=== PATIENT | female | born 1945 | race Two or more races ===

== ENCOUNTER 2020-01-20 06:20 | Day surgery (SDC) | payer OTHER ==
[2020-01-20] VITALS (9 sets, daily range): BP systolic 122–139; BP diastolic 59–73
[~2020-01-20] VITALS: Ht 149.9 cm; Wt 53.5 kg
[~2020-01-20 06:20] MED LIST: OMEPRAZOLE40 M1 ORAL
[2020-01-20] MEDS ORDERED: CREON DR 36,001 EACH PO (06:43)
[2020-01-20] MEDS ORDERED: SULFAMETHOXAZO1 EAC1 ORAL (06:43)
[2020-01-20] MEDS ORDERED: BISACODYL5 MG ORAL (06:43)
--- NOTE | 2020-01-20 06:56 | Short Stay Surgery H&P ---
History of Present Illness History of Present Illness Chief Complaint abdominal pains/GERDs, constipation, rectal bleeding. HPI Mariluz Ogden is a 74 year old female who was admitted on for Gerd,Abdominal Pain Patient History Allergies: Coded Allergies: No Known Allergies (Unverified , 01/20/20) PAST MEDICAL HISTORY: (1) Hyperlipidemia (2) Arthritis (3) History of carpal tunnel release Medication History Scheduled Bisacodyl* (Dulcolax*), 5 MG ORAL DAILY, (Reported) Lipase/Protease/Amylase (Creon Dr 36,000 Units Capsule), 1 EACH PO DAILY, (Reported) Omeprazole (Omeprazole), 40 MG ORAL DAILY, (Reported) Sulfamethoxazole/Trimethoprim Ss Tab* (Sulfamethoxazole-Tmp Ss Tablet*), 1 TAB ORAL TWICE A DAY, (Reported) Review of Systems Cardiovascular: Reports: no symptoms Skeletal: Reports: trauma Gastrointestinal: Reports: gastro esophageal reflux disease Genitourinary: Reports: no symptoms Neurologic: Reports: no symptoms Endocrine: Reports: no symptoms Hematologic: Reports: no symptoms Physical Exam Vital Signs Last Vital Signs Date Time Temp Pulse Resp B/P (MAP) Pulse Ox O2 Delivery O2 Flow Rate FiO2 01/20/20 06:44 97.0 57 16 138/65 99 Room Air Skin: normal HENT: normal Heart: normal Lungs: normal Abdomen: abnormal Extremities: normal Genitourinary: normal Plan Plan of Care Upper GI. endoscopy and biopsy. Preop Interventions None. Summary of Findings See the reports. Attestation Are the patient's medical conditions optimized for surgery? Attestation Response: yes Derick Bermudez MD Jan 20, 2020 06:56
--- NOTE | 2020-01-20 06:57 | Pre-Procedure Note/Attestation ---
Pre-Procedure Note/Attestation Complete Prior to Procedure Planned Procedure: left Procedure Narrative: Examination of the upper GI. tract with obtaining biopsy Indications for Procedure Pre-Operative Diagnosis: R/O Peptic ulcer/esophagitis. Attestation I attest that I discussed the nature of the procedure; its benefits; risks and complications; and alternatives (and the risks and benefits of such alternatives), prior to the procedure, with the patient (or the patient's legal surgical sales representative). I attest that, if there was a reasonable possibility of needing a blood transfusion, the patient (or the patient's legal surgical sales representative) was given the [place] [facility] [employer] [facility] standardized written summary, pursuant to the Ihsan Shannon Blood Safety Act ([place] Health and Safety Code # 1645, as amended). I attest that I re-evaluated the patient just prior to the surgery and that there has been no change in the patient's H&P, except as documented below: Derick Bermudez MD Jan 20, 2020 06:57
--- NOTE | 2020-01-20 06:58 | Discharge Instructions ---
Discharge Instructions Discharge Instructions Follow up with: Call for appointment in the office after 2 weeks. For Congestive Heart Failure Reminder Report to your physician any weight gain of 5 pounds or more in one week. Derick Bermudez MD Jan 20, 2020 06:58
[2020-01-20] MEDS ORDERED: Midazolam 2mg/2ml Inj ONE (07:59)
[2020-01-20] MEDS ORDERED: Lidocaine 1% MPF 10mg/ml 5ml ONE (08:00)
[2020-01-20] MEDS ORDERED: LR 1000ml ONE (08:00)
--- NOTE | 2020-01-20 08:13 | Anethesia Preoperative Eval ---
Anesthesia Pre-op PMH/ROS General Date of Evaluation: Jan 20, 2020 Time of Evaluation: 07:51 Anesthesiologist: Elizabeth ASA Score: ASA 3 Mallampati Score Class I : Soft palate, uvula, fauces, pillars visible Class II: Soft palate, uvula, fauces visible Class III: Soft palate, base of uvula visible Class IV: Only hard plate visible Mallampati Classification: Class II Surgeon: Aidan Diagnosis: Hiatal Hernia Surgical Procedure: EGD Anesthesia History: none Family History: no anesthesia problems Allergies: Coded Allergies: No Known Allergies (Unverified , 01/20/20) Medications: see eMAR Patient NPO?: Yes Past Medical History Cardiovascular: Reports: HTN Gastrointestinal/Genitourinary: Reports: GERD, other - Hiatal Hernia Musculoskeletal/Integumentary: Reports: OA Anesthesia Pre-op Phys. Exam Physician Exam Last Vital Signs Date Time Temp Pulse Resp B/P (MAP) Pulse Ox O2 Delivery O2 Flow Rate FiO2 01/20/20 06:44 97.0 57 16 138/65 99 Room Air Constitutional: NAD Neurologic: CN 2-12 intact Cardiovascular: RRR Respiratory: CTA Gastrointestinal: S/NT/ND Airway Exam Mallampati Score: Class II MO: full ROM: limited Teeth: missing, intact Anesthesia Pre-op A/P Risk Assessment & Plan Assessment: ASA 3 Plan: TIVA Status Change Before Surgery: David Clinton MD Jan 20, 2020 08:13
--- NOTE | 2020-01-20 08:14 | Immediate Post-Op Evaluation ---
Immediate Post-Op Evalulation Immediate Post-Op Evalulation Procedure: EGD Date of Evaluation: Jan 20, 2020 Time of Evaluation: 08:44 IV Fluids: 400 LR Blood Products: 0 Estimated Blood Loss: 1 Urinary Output: 0 Blood Pressure Systolic: 139 Blood Pressure Diastolic: 60 Pulse Rate: 60 Respiratory Rate: 17 O2 Sat by Pulse Oximetry: 100 Temperature (Fahrenheit): 97.2 Pain Score (1-10): 1 Nausea: No Vomiting: No Complications 0 Patient Status: awake, reacts, patent, none Hydration Status: adequate David Johnson MD Jan 20, 2020 08:14
[2020-01-20] MEDS ORDERED: HYDROcodone/Acetamin 5/325 tab ORAL PRN (08:15)
[2020-01-20] MEDS ORDERED: LR 1000ml 1,000 ML IVLG SCH (08:15)
[2020-01-20] MEDS ORDERED: LORazepam Inj 2mg/ml 1ml IV PRN (08:15)
[2020-01-20] MEDS ORDERED: HYDROcodone/Acetamin 7.5/325 tab ORAL PRN (08:15)
[2020-01-20] MEDS ORDERED: Meperidine 25mg/1ml Inj (FOR RIGORS ONLY) IV PRN (08:15)
[2020-01-20] MEDS ORDERED: Labetalol 5mg/ml 20ml vial IV PRN (08:15)
[2020-01-20] MEDS ORDERED: oxyCODONE HCL/Acetaminophen 5/325mg ORAL PRN (08:15)
[2020-01-20] MEDS ORDERED: Hydromorphone 0.5mg/0.5ml inj IVP PRN (08:15)
[2020-01-20] MEDS ORDERED: Ketorolac 30mg Inj IV PRN ×2 (08:15)
[2020-01-20] MEDS ORDERED: Metoclopramide 10mg/2ml Inj IVP PRN (08:15)
[2020-01-20] MEDS ORDERED: fentaNYL 100 mcg/2 mL IV PRN (08:15)
[2020-01-20] MEDS ORDERED: Midazolam 2mg/2ml Inj IVP PRN (08:15)
[2020-01-20] MEDS ORDERED: DiphenhydrAMINE 50mg/ml Inj IVP PRN (08:15)
[2020-01-20] MEDS ORDERED: Atropine Sulfate 0.4mg/ml inj IVP PRN (08:15)
--- NOTE | 2020-01-20 08:15 | 48 Hour Post Anesthesia Eval ---
Post Anesthesia Evaluation Procedure: EGD Date of Evaluation: Jan 20, 2020 Time of Evaluation: 10:54 Blood Pressure Systolic: 138 0: 62 Pulse Rate: 63 Respiratory Rate: 18 Temperature (Fahrenheit): 98 O2 Sat by Pulse Oximetry: 100 Airway: patent Nausea: No Vomiting: No Pain Intensity: 1 Hydration Status: adequate Cardiopulmonary Status: Stable Mental Status/LOC: patient returned to baseline Follow-up Care/Observations: 0 Post-Anesthesia Complications: 0 Follow-up care needed: ready to discharge David Johnson MD Jan 20, 2020 08:15
--- NOTE | 2020-01-20 08:15 | Endoscopy Procedure Note ---
Endoscopy Procedure Note General Indication for Procedure: Epigastric pain/GERDs Procedures Performed: EGD - Small Hiatal hernia and mild gastritis, biopsies obtained from prepyloric and gastric body areas. Specimen: yes Pt Tolerated Procedure Well: Yes Estimated Blood Loss: none Anesthesia Anesthesiologist: Dr. Johnson Anesthesia: moderate sedation Medications Medication Given: see anesthesia record Inserted Devices Implant(s) used?: No Quality Quality of Bowel Preparation: Excellent Was there any complications?: No GI Core Measures 50 yrs or older w/o bx or poly: Not Applicable 10yrs. F/U recommended: Not Applicable If not recommended, why?: Med reason:<3 yrs.: System Reason:<3 yrs.: Derick Bermudez MD Jan 20, 2020 08:15
--- NOTE | 2020-01-20 09:00 | Procedure Note ---
DATE OF PROCEDURE: 01/20/2020 SURGEON: Derick Bermudez MD. PROCEDURE: Esophagogastroduodenoscopy with biopsy. PREOPERATIVE DIAGNOSES: History of nonsteroidal anti-inflammatory agent taken, rule out peptic ulcer disease, gastritis, esophagitis, duodenal ulcer. POSTOPERATIVE DIAGNOSES: 1. Small hiatal hernia. 2. Mild gastritis particularly in the pre-pyloric area. Biopsy was taken from the pre-pyloric area and gastric body. MEDICATION USED: Per Dr. Johnson. INSTRUMENT: GIF Olympus upper GI video endoscope. DESCRIPTION OF PROCEDURE: The patient after arriving an endoscopy unit, was told about risks and benefits of the procedure which she accepted and signed informed consent. At this time, she was put on the left lateral decubitus position. After adequate IV sedation, the scope was gently passed through the cricopharyngeal area, was lodged in the upper esophagus and gradually advanced towards gastroesophageal junction. The entire length of esophagus looked normal. No evidence of any ulcerations, strictures, tumors, polyps, or exudative process etc. was noted. Upon reaching to GE junction, the ulcer looked normal but there was no evidence of Tucker's mucosa though there was seen a small hiatal hernia. At this time, the scope was advanced into the stomach and gastric cavity was distended with insufflation of air. Gradually, the areas of the fundus and the body and the antrum were examined. There was no any evidence of ulcers or polyps or tumor; however, there was mild inflammatory process mostly seen in the mid body and particularly in the peripyloric area. At this point, one biopsy from the gastric body and the other one from the pre-pyloric area was obtained and subsequently scope was passed through the pylorus. First and second portion of duodenum were found to be completely normal. The scope was then pulled out and a retroflexion maneuver was applied and the area of the gastroesophageal junction was examined in a closer fashion, which did not reveal any particular abnormalities. Finally, the scope was pulled out and the procedure was terminated. The patient tolerated the procedure well and left the endoscopy room in good condition. Derick Bermudez M.D. DR: Ryan JOB#: [id number] CC:
--- NOTE | 2020-01-20 09:59 | Pre-op HX & Phy Repo 2 SIG ---
DATE OF ADMISSION: 01/20/2020 HISTORY OF PRESENT ILLNESS: The patient is a 74-year-old female who is being seen prior to undergoing the procedure for upper GI endoscopy for which she has been scheduled to receive for evaluation of her gastrointestinal problem that she has suffered subsequent to her work injury and life aftermath. 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 At this time, when I examined the patient, I recommended the patient to undergo the procedure of upper GI endoscopy as she has been complaining of the upper epigastric pain along with significant amount of heartburn and occasional nausea. Today, as I examined the patient, she tells me that she is still having heartburn that she has had in the past, but it is much less than she has been started on medication of omeprazole and anti-acids. She also tells me that she has been experiencing symptoms of gastroesophageal acid reflux and heartburn, which in the past prior to starting the omeprazole was quite significant and bothering her at times. Occasionally, she has been awakened during the night feeling of pressure over her throat as well. She, however, denies having any difficulty swallowing such as dysphagia or odynophagia. She also reports that she has been experiencing significant amount of gas as well. It is important to mention that when the patient was injured at job site, she was started on numerous medications including strong analgesics and nonsteroidal anti-inflammatory agents such as ibuprofen and similar compounds that she took for a long period of time. She also reports that she has had occasionally rectal bleeding, but not significant and may be related to her hemorrhoids as she has also received a colonoscopic examination in the past. 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 Gradually, she started to have pain over her right side of the body, basically shoulder and then subsequently she had pain over both shoulders and hands, as I mentioned. She was also recently found to have right shoulder partial rotator cuff tear and right shoulder tenosynovitis and right shoulder acromioclavicular degenerative joint disease along with the right elbow as well. PAST MEDICAL HISTORY: The patient has had history of hyperlipidemia with high cholesterol and carpal tunnel arthritis. Otherwise, she does not have any other problems such as hypertension or pancreatitis, colitis, etc. PAST SURGICAL HISTORY: The patient has had history of right hand surgery for carpal tunnel condition approximately two and a half years ago. ALLERGIES: She is allergic to pollen and dust. HABITS: She does smoke cigarettes , she does not drink alcohol or use any illicit drugs. MEDICATIONS: Present medications are Dulcolax 5 mg daily, Creon 36K, omeprazole 40 mg daily, and Bactrim DS. REVIEW OF SYSTEMS: Basically history of present illness. She denies having any chest pain, shortness of breath, or cough. She only has pain over the right elbow and shoulder, and the right hand area which is related to her work injury, as she has been experiencing these pains. She denies having any anginal chest pain or palpitation, etc. PHYSICAL EXAMINATION: GENERAL: At this time reveals alert and well-oriented, very pleasant female, who does not seem to be in any acute distress. She looks well developed and nourished. VITAL SIGNS: Blood pressure 138/65, temperature 97.1, respiratory rate 16 per minute, pulse rate 57 per minute. Oxygen saturation 99% on room air. HEENT: Normocephalic. Pupils are equal in size and reactive to light and accommodation. No visible jaundice. Buccal cavity, tongue midline, well hydrated. No ulcers. NECK: Supple. No JVD, thyromegaly, or adenopathy. CHEST: Clear to auscultation and percussion. No rales or rhonchi. HEART: S1, S2 normal. Regular rhythm. No gallops or murmur. ABDOMEN: Soft, but there are areas of tenderness over the upper part of the abdomen. There is no organomegaly. No palpable mass and no rebound phenomenon. Bowel sounds are present. EXTREMITIES: Within normal limits. No pretibial edema, cyanosis, or clubbing. CENTRAL NERVOUS SYSTEM: Grossly normal. SKIN: Nonsignificant. LYMPHATICS: Nonsignificant. PRELIMINARY PREOPERATIVE IMPRESSION: 1. Epigastric pain, mostly consistent with chronic gastroesophageal reflux, rule out NSAID-induced peptic ulcer disease, gastritis, duodenal ulcer, esophagitis. 2. History of minimal rectal bleeding mostly consistent with hemorrhoids caused by constipation. 3. History of bodily injury, work-related. 4. Arthritis and hyperlipidemia. RECOMMENDATIONS: The patient at this time seems to be quite stable to undergo the procedure for upper GI endoscopy for which she has been scheduled. She understands the risks and benefits of this procedure and will sign the consent. Said Gerardo Bermudez DR: MAUREEN JOB#: [id number] CC:
== END 2020-01-20 09:55 | disposition home or self-care (01) ==
LOC: GAS 06:20
DX: K44.9 Diaphragmatic hernia without obstruction or gangrene (principal); K29.70 Gastritis, unspecified, without bleeding; E78.5 Hyperlipidemia, unspecified; M19.90 Unspecified osteoarthritis, unspecified site; Z79.899 Other long term (current) drug therapy; K21.9 Gastro-esophageal reflux disease without esophagitis; F17.210 Nicotine dependence, cigarettes, uncomplicated; E78.00 Pure hypercholesterolemia, unspecified; Z91.048 Other nonmedicinal substance allergy status
CPT/HCPCS: 43239; 94003; J2250; J2704; J7120; U0002; 94150